=== PATIENT | male | born 1995 ===

== ENCOUNTER 2018-01-07 21:12 | Emergency (ER) | payer OTHER ==
[~2018-01-07] VITALS: Ht 167.6 cm; Wt 67.7 kg
[2018-01-07 21:22] VITALS: TEMP 38.3; Ht 167.6 cm; Wt 67.7 kg
[2018-01-07] MEDS ORDERED: ACETAMINOPHEN 500 MG TAB PO STA ×2 (21:36→23:41)
[2018-01-07] MEDS ORDERED: ONDANSETRON 4MG OD TAB PO ONE (21:45)
[2018-01-07] MEDS ORDERED: ONDANSETRON HOME PACK 4MG OD TAB PO ONE (21:45)
--- NOTE | 2018-01-07 22:41 | DIAGNOSTIC IMAGING REPORT ---
CHEST 2 VIEWS ROUTINE HISTORY: cough/fever COMPARISON: None. FINDINGS: The lungs are clear. Cardiac silhouette is normal in size. No pleural effusions. No pneumothorax. IMPRESSION: No acute process. Electronically signed by: Familia Gaitan M.D. 01/07/2018 10:40 PM Dictated Date/Time: 01/07/2018 10:39 PM
[2018-01-07 22:49] LABS: INFLUENZA B ANTIGEN Neg for Influ B (NEG)
[2018-01-07] MEDS ORDERED: ALBUTEROL HFA 8 GM INHALER INH STA (23:32)
[2018-01-07 23:53] VITALS: BP 138/72; PULSE 92; O2SAT 97
--- NOTE | 2018-01-08 04:58 | EMERGENCY ROOM VISIT NOTE ---
History First contact with patient: 21:26 Chief Complaint: FEVER Stated Complaint: CONSTANT FEVER History of Present Illness The patient is a 22 year old male who presents to the Emergency Room with complaints of fever, chills, cough, congestion, body aches and pains for the past 2 days. No Tylenol/IBU. Patient denies chest pain, dyspnea, abdominal pain, vomiting, diarrhea, neck stiffness, sore throat. She is tolerating p.o. fluids but has a decreased appetite. No recent travel. Review of Systems An 10 system review of systems was completed with positives and pertinent negatives listed in the HPI. Past Medical/Surgical History None Social History Smoking Status: Never Smoker Smokeless Tobacco Use: No Alcohol Use: none Drug Use: none Occupation Status: [employer] student Current/Historical Medications No Active Prescriptions or Reported Meds Physical Exam Vital Signs Date Time Temp Pulse Resp B/P (MAP) Pulse Ox O2 Delivery O2 Flow Rate FiO2 01/07/18 23:53 92 18 138/72 97 01/07/18 22:45 96 20 114/79 97 Room Air 01/07/18 21:22 38.3 112 18 123/70 97 Room Air Physical Exam VITALS: Vitals are noted on the nurse's note and reviewed by myself. Vital signs afebrile. GENERAL: Pleasant pain, in no acute distress, nondiaphoretic, well-developed well-nourished. SKIN: The skin was without rashes, erythema, edema, or bruising. There is no tenting of the skin. Capillary reflex less than 2 seconds. HEAD: Normocephalic atraumatic. EARS: External auditory canals clear, tympanic membranes pearly manning without erythema or effusion bilaterally. EYES: Pupils equal round and reactive to light and accommodation. Conjunctivae without injection, sclerae without icterus. Extraocular movements intact. NOSE: Patent, turbinates without inflammation or discharge. No sinus tenderness. MOUTH: Mucous membranes mildly dry . Pharynx without erythema or exudate. Uvula midline. Airway patent. Tongue does not deviate. NECK: Supple without nuchal rigidity. No lymphadenopathy. No thyromegaly. Cervical spine is nontender. No JVD. HEART: Regular rate and rhythm without murmurs gallops or rubs. LUNGS: Clear to auscultation bilaterally without wheezes, rales or rhonchi. No retractions or accessory muscle use. ABDOMEN: Positive bowel sounds x 4. Normal tympanic percussion. Soft, nontender, without masses or organomegaly. Santiago sign negative. No guarding or rebound tenderness. No CVA tenderness MUSCULOSKELETAL: No muscle atrophy, erythema, or edema noted. NEURO: Patient was alert and oriented to person place and time. Normal sensation to light and sharp touch. No focal neurological deficits. Medical Decision & Procedures Laboratory Results Test 01/07/18 21:35 Influenza Type A Antigen Neg for Influ A (NEG) Influenza Type B Antigen Neg for Influ B (NEG) Medications Administered Medications (Trade) Dose Ordered Sig/Natalie Route Start Time Stop Time Status Last Admin Dose Admin Acetaminophen (Tylenol Tab) 1,000 mg NOW STAT PO 01/07/18 21:36 01/07/18 21:37 DC 01/07/18 21:44 1,000 MG Ondansetron HCl (Zofran Odt) 4 mg ONE ONCE PO 01/07/18 21:45 01/07/18 21:46 DC 01/07/18 21:44 4 MG Ondansetron HCl (ZOFRAN ODT 4MG Home Pack) 1 homepack UD ONCE PO 01/07/18 21:45 01/07/18 21:46 DC 01/07/18 21:45 1 HOMEPACK Albuterol (Ventolin Hfa Inhaler) 2 puffs ONE STAT INH 01/07/18 23:32 01/07/18 23:34 DC 01/07/18 23:48 2 PUFFS Acetaminophen (Tylenol Tab) 1,000 mg NOW STAT PO 01/07/18 23:41 01/07/18 23:43 DC 01/07/18 23:48 1,000 MG ED Course Prior records/ancillary studies reviewed. Triage Nursing notes reviewed. The patient's history was concerning for fever. Differential diagnosis: Etiologies such as viral syndrome, otitis, pharyngitis, pneumonia, influenza, meningitis, urinary tract infection, sepsis, bacteremia, as well as others were entertained. Physical examination: Patient is alert and tolerating fluids ER treatment provided: Tylenol, albuterol,, Motrin On reassessment the patient felt better. Diagnostics interpreted by me: The labs revealed negative flu Imaging studies: Chest x-ray with no acute consolidation, pneumothorax or free air per my interpretation This appears to be consistent with flulike illness. Patient was neurovascularly and neurologically intact. No pneumonia. Negative rapid flu but this is not 100% accurate. Patient had no signs of meningitis. he was tolerating fluids. he is advised to rest, stay well hydrated and take medications as directed. he is advised to follow-up with health services in a few days here in the ER sooner for high fevers, neck stiffness, lethargy, worsening signs or symptoms or as needed.. By the evaluation outlined above emergent etiologies such as otitis, pharyngitis, pneumonia, meningitis, urinary tract infection, sepsis, bacteremia, as well as others were deemed relatively unlikely. The pt informed about the findings as listed above. All questions were answered and pleased with the treatment. Return instructions were outlined and the patient was discharged in stable condition. Referral: The patient was referred back to their primary care physician/health services for follow-up in 2 to 3 days for a recheck of the current condition. Case reviewed with my attending The chart was completed utilizing [employer] Speech voice recognition software. Grammatical errors, random word insertions, pronoun errors, and incomplete sentences are an occassional consequence of this system due to software limitations, ambient noise, and hardware issues. Any formal questions or concerns about the content, text, or information contained within the body of this dictation should be directly addressed to the physician insurance assistant for clarification. Medical Decision As above Impression Primary Impression: Influenza-like symptoms Departure Information Dispostion Home / Self-Care Condition GOOD Prescriptions No Active Prescriptions or Reported Meds Forms HOME CARE DOCUMENTATION FORM, School Instructions, Return To School: 3 days IMPORTANT VISIT INFORMATION Patient Instructions Fever - [facility], [facility], ED Flu Additional Instructions Stay at home until you are 24 hours fever free as you are highly contagious. Acetaminophen(Tylenol) may be used for fever or pain. Use 1000mg every six hours as needed. Avoid using more than 3000mg in a 24 hour period. (AND/OR) Ibuprofen(Motrin, Advil) may be used for fever or pain. Use 600mg every six hours as needed. Take with food. Avoid using more than 2400mg in a 24 hour period. Do not use 2400mg per day for more than three consecutive days without physician direction. Prolonged inappropriate use can lead to stomach upset or ulcers. Afrin nasal spray: 2-3 sprays to each nostril twice daily as needed for congestion. Do not use for more than 3-4 days because it can lead to worsening rebound congestion. Pseudoephedrine(Sudaphed): 30-60mg every 6 hours as needed for nasal congestion. Do not take this with other stimulant products or supplements. Albuterol Inhaler: Take 2 puffs four times daily for seven days, then as needed. Rest and drink plenty of fluids. Controlling your fever with Tylenol and Ibuprofen as above will make you feel better. Wash your hands after nose blowing, sneezing, or coughing. Most germs are spread through contact, therefore improper hygiene may result in your close contacts and loved ones becoming ill just like you. Continue current medications. Return to the ER for severe headache, neck stiffness, chest pain, difficulty breathing, fevers, vomiting, worsening of your condition, or as needed. Follow up with your primary physician this week for a recheck of your current condition. School Instructions Return To School: 3 days
== END 2018-01-07 23:55 | disposition home or self-care (01) ==
LOC: C.EDB 21:13 → C.EDC 23:55
DX: R68.89 Other general symptoms and signs (principal)